=== PATIENT | male | born 1975 | race Caucasian/White ===

== ENCOUNTER 2017-07-20 22:36 | Emergency (ER) | payer BC, OTHER ==
[2017-07-20] MEDS ORDERED: IBUPROFEN 400 MG TABLET PO ONE (22:55)
[2017-07-20] MEDS ORDERED: IBUPROFEN 400 MG TABLET ONE (22:55)
--- NOTE | 2017-07-20 23:11 | ERNOTE ---
Medical Problem HPI - General Chief Complaint: Flu Symptoms Time Seen by Provider: 07/20/17 23:08 Source: patient Exam Limitations: no limitations - Immun/Allergies/Home Medications Immunizations: IMMUNIZATION HX Immunizations Up to Date Yes Allergies/Adverse Reactions: Allergies Penicillins Allergy (Severe, Verified 07/20/17 22:44) Anaphylaxis Home Medications: HOME MEDICATIONS Clindamycin HCl [Cleocin HCl] 300 mg PO TID #30 capsule 07/20/17 [Last Taken Unknown] Escitalopram Oxalate [Lexapro] 20 mg PO DAILY 07/20/17 [Last Taken Unknown] Levothyroxine Sodium [Synthroid] 125 mcg PO DAILY 07/20/17 [Last Taken Unknown] - History of Present History Narrative: Pt had onset of chills, body aches and cough early this morning. Timing: getting worse Severity: moderate Review of Systems - Review of Systems Constitutional: Present: fever, chills, diaphoresis ENT: Present: sore throat Respiratory: Present: cough Cardiology: Absent: chest pain Gastrointestinal/Abdominal: Absent: nausea, vomiting, diarrhea, constipation Musculoskeletal: Present: muscle pain Skin: Present: no symptoms reported Neurological: Present: no symptoms reported Endocrine: Present: excessive sweating Hematologic/Lymphatic: Present: no symptoms reported - Patient's Past Medical History Patient History - Medical: Anxiety, Hypothyroidism Patient History - Cardiac/Respiratory: No pertinent hx Patient History - Cancer: No Hx of Cancer Patient History - Surgical Procedures: No surgical history Patient History - Other: None - Social History Living Situations: home Psych History: Hx of Anxiety, Current tx/ever been on anti-depressants or anti- anxiety meds Smoking Status: Never smoker Do you dip or chew tobacco: Yes - 4-5/week Alcohol Use: occasionally Drug Use: none - Immunizations Immunizations Up to Date: Yes Physical Exam - Physical Exam General Appearance: Present: wd/wn, alert, mild distress Head Exam: Present: normal inspection, no evidence of injury Ears, Nose, Throat: Present: pharyngeal erythema - minor Neck: Present: normal inspection, nontender Respiratory: Present: no respiratory distress, normal breath sounds Cardiovascular/Chest: Present: regular rate, rhythm, no murmur Gastrointestinal/Abdominal: Present: normal bowel sounds, nontender, nondistended, soft Back Exam: Present: normal inspection, normal range of motion Extremity Exam: Present: normal inspection, normal range of motion, no edema Neurological Exam: Present: alert, oriented, normal mood/affect, no motor/ sensory deficits Skin Exam: Present: normal color, warm/dry Lymphatic Exam: Present: no adenopathy ED Progress - Results and Orders Patient's Lab Results:: I have reviewed the patient's lab results. Results and Orders: Laboratory Tests 07/20/17 07/20/17 22:46 22:46 Influenza Type A Ag Negative Influenza Type B Ag Negative Group A Strep Rapid Positive H - Vital Signs Patient's Vital Signs:: I have reviewed the patient's vital signs. Vital Signs: Vital Signs 07/20/17 22:40 Temperature 39.0 C H Pulse Rate 132 H Respiratory 15 Rate Blood Pressure 124/80 O2 Sat by Pulse 95 Oximetry - Progress/Reassessment Chief Complaint: Flu Symptoms Departure Clinical Impression: Strep pharyngitis - Departure Disposition: Home self-care Condition: Good Instructions: Strep Throat, [id number] Prescriptions: Clindamycin HCl [Cleocin HCl] 300 mg PO TID #30 capsule
[2017-07-20] MEDS ORDERED: CEPHALEXIN MONOHYDRATE 250 MG CAPSULE PO ONE (23:30)
[2017-07-20] MEDS ORDERED: CEPHALEXIN MONOHYDRATE 250 MG CAPSULE ONE (23:34)
[2017-07-20 23:51] VITALS: BP 127/74
== END 2017-07-20 23:50 | disposition home or self-care (01) ==
LOC: ER 22:36
DX: Z72.0 Tobacco use; J02.0 Streptococcal pharyngitis